=== PATIENT | female | born 1950 | race Asian ===

== ENCOUNTER 2018-05-07 06:09 | Day surgery (SDC) | payer OTHER ==
[2018-05-07] MEDS ORDERED: hydrALAzine 20 MG INJ (08:38)
[2018-05-07] MEDS ORDERED: FENTAnyl 50 MCG/ML VIAL (08:49)
[2018-05-07] MEDS ORDERED: MIDAZOLAM 1 MG/ML 2 ML INJ (08:50)
== END 2018-05-07 14:41 | disposition home or self-care (01) ==
LOC: GIL 06:09
DX: Z12.11 Encounter for screening for malignant neoplasm of colon (principal); K64.4 Residual hemorrhoidal skin tags; E11.9 Type 2 diabetes mellitus without complications; I10 Essential (primary) hypertension
CPT/HCPCS: 45378; 82962